=== PATIENT | female | born 1995 | race Caucasian/White ===

== ENCOUNTER 2016-09-06 22:25 | Emergency (ER) | payer BC ==
[~2016-09-06 22:25] MED LIST: MULTTAB67 PO; NORE-46 PO
[2016-09-06 22:27] VITALS: BP 177/77; PULSE 76; RESP 16; TEMP 97.8; O2SAT 100
[2016-09-23] MEDS ORDERED: NAPR250T57 PO (15:37)
[2016-09-23] MEDS ORDERED: MEDR4PAK PO (15:37)
== END 2016-09-06 22:39 | disposition left against medical advice (07) ==
LOC: NED 22:25
DX: H57.8 Other specified disorders of eye and adnexa (principal)
CPT/HCPCS: 99281